=== PATIENT | female | born 1995 | race Caucasian/White ===

== ENCOUNTER 2023-12-20 11:40 | Emergency (ER) | payer OTHER, SELFPAY ==
[2023-12-20 11:41] VITALS: BP 83/67; PULSE 60; RESP 14; TEMP 36.3; O2SAT 97; BMI 32.9
--- NOTE | 2023-12-20 12:10 | RAD_ITS ---
STUDY: X-RAY - RIGHT ANKLE REASON FOR EXAM: Female, 28 years old. Pain and swelling TECHNIQUE: 3 view(s) of the ankle. COMPARISON: None. FINDINGS: Normal visualized distal tibia and fibula. Normal medial and lateral malleoli. Normal tibiotalar articulation and ankle mortise. Calcific fragment seen distal to the fibula likely accessory ossicles Normal visualized talus and calcaneus. The visualized subtalar, talonavicular, calcaneocuboid and tarsal articulations are normal. Subtle soft tissue swelling suggests ankle sprain but a subtle occult fracture cannot be excluded. RAD/Ankle min 3 Views IMPRESSION: No acute fracture or suspicious osseous lesion Nonspecific soft tissue swelling suggests ankle sprain Electronically Signed: Hero Vargas MD at 12:30 EDT ,
--- NOTE | 2023-12-20 12:10 | RAD_ITS ---
STUDY: X-RAY - RIGHT FOOT CLINICAL: Female, 28 years old. Pain TECHNIQUE: 3 view(s) of the foot. COMPARISON: None. FINDINGS: Normal talus, calcaneus, and tarsal bones. Normal visualized subtalar, talonavicular, calcaneocuboid, tarsal and tarsometatarsal articulations. Normal metatarsi. Normal metatarsophalangeal joint of the great toe. Normal tibial and fibular sesamoid bones. Normal interphalangeal joint of the great toe. Normal phalanges of the great toe. Normal second through fifth metatarsophalangeal joints. Normal interphalangeal joints and phalanges of the lesser toes. The soft tissue structures are unremarkable. RAD/Foot min 3 Views IMPRESSION: Normal x-ray examination of the foot. Electronically Signed: Hero Vargas MD at 12:31 EDT ,
--- NOTE | 2023-12-20 13:42 | ED.VIS.LOWEX ---
HPI History of Present Illness Chief Complaint: Lower Extremity Injury Detail of Chief Complaint: Right ankle injury Informant: patient Onset/Context/Timing Onset: Today Narrative Narrative: Patient presents secondary to right ankle injury at work. She slipped on the wet floor and fell injuring her right ankle. She has been able to weight-bear but has antalgic gait. She denies any other injury. PFSH PFSH no medical history Home Medications ?Medication ?Instructions ?Recorded ?Last Taken ?Type Ibuprofen [Motrin] 800 mg PO TID PRN PRN Pain #60 tabs 02/22/16 Unknown Rx hydrocodone-acetaminophen 5-325mg 1 - 2 ea PO Q6H PRN PRN Pain #20 02/22/16 Unknown Rx 5mg-325mg tabs Allergy/AdvReac Type Severity Reaction Status Date / Time No Known Allergies Allergy Verified 02/22/16 19:32 Social History Smoking Status: Never smoker ROS ROS ED Constitutional Constitutional ED: Denies chills or fever(s) Eyes Eyes: Denies discharge from eye(s) ENT ENT ED: Denies discharge from eye(s) or rhinorrhea Cardiovascular Cardiovascular: Denies chest pain Respiratory/Chest Respiratory/Chest: Denies cough or dyspnea Gastrointestinal Gastrointestinal: Denies abdominal pain, nausea or vomiting Musculoskeletal Musculoskeletal: Reports extremity pain; Denies back pain Integumentary Denies Abrasions or rash Neurologic Neurologic: Denies headache(s) or weakness Psychiatric Psychiatric: Denies anxiety or depression Allergic/Immunologic Allergic/Immunologic ED: Denies lip swelling or urticaria EXAM Physical Exam Const Vital Signs: 12/20/23 11:41 Temperature 97.3 F L Temperature Source Temporal Pulse Rate 60 Respiratory Rate 14 Blood Pressure 83/67 L Blood Pressure Mean 72 Pulse Ox 97 Oxygen Delivery Method Room Air Positive well nourished and well developed General Appearance ED: well developed HEENT Reports moist mucous membranes Neck full ROM Chest Wall inspection of chest normal and palpation of chest normal Resp normal respiratory effort and clear to auscultation bilaterally Cardio regular rate and regular rhythm GI non-tender Palpation: soft Extremity Extremity Narrative: Edema and tenderness palpation of the lateral malleolus of the right ankle. Minimal tenderness to the medial ankle. Mild tenderness along the calcaneus. No tenderness over the forefoot. Good distal pulses. No tenderness at the knee or proximal fibula. Neuro oriented x3, moves all extremities and no sensory deficits noted Motor Exam: strength 5/5 throughout Skin no wounds MDM MDM MDM Narrative Medical decision making narrative: Patient did take symptom for pain prior to arrival. Right foot and ankle x-rays obtained to evaluate for potential fracture. Radiography Diagnostic Testing: Clinical Impression(s) from Imaging Studies Ankle X-Ray 12/20/23 12:10 IMPRESSION: No acute fracture or suspicious osseous lesion Nonspecific soft tissue swelling suggests ankle sprain Electronically Signed: Hero Vargas MD at 12:30 EDT , Foot X-Ray 12/20/23 12:10 IMPRESSION: Normal x-ray examination of the foot. Electronically Signed: Hero Vargas MD at 12:31 EDT , Treatment and Re-Evaluation Narrative: Right foot and ankle x-rays per my interpretation reveal no evidence of acute fracture. Radiology interpretation reviewed and agrees. Test results discussed with the patient. She is placed in a stirrup air splint. She does not want crutches. She will follow-up with [facility]. Return instructions given. Discharge Plan Triage Chief Complaint: Lower Extremity Injury ED Provider: Zaina Mcneill Dx/Rx/DC Orders Clinical Impression: Right ankle sprain Instructions: ED Ankle Sprain (Adult) Prescriptions: No Action Ibuprofen [Motrin] 800 MG tablet 800 mg PO TID PRN PRN (Reason: Pain) Qty: 60 1RF hydrocodone-acetaminophen 1 EACH tablet 1 - 2 ea PO Q6H PRN PRN (Reason: Pain) Qty: 20 0RF Stand Alone Forms: Work Status Form Primary Care Provider: Care Physician,No Primary Referrals: Corporate,Care [Group of Physicians] - 5-7 Days Care Physician,No Primary [Primary Care Provider] - Print Language: Bengali Disposition Disposition: Home, Self Care Discharge Date/Time: 12/20/23 13:56
== END 2023-12-20 13:56 | disposition home or self-care (01) ==
PROVIDERS: Emergency Provider Emergency Medicine; Visit Provider Emergency Medicine
DX: S93.401A Sprain of unspecified ligament of right ankle, initial encounter (principal); W01.0XXA Fall on same level from slipping, tripping and stumbling without subsequent striking against object, initial encounter; Y99.0 Civilian activity done for income or pay; Y92.89 Other specified places as the place of occurrence of the external cause
CPT/HCPCS: 73610; 73630; 99282